=== PATIENT | male | born 1985 | race African-American/Black ===

== ENCOUNTER 2022-05-18 23:46 | Emergency (ER) | payer MEDICAID, OTHER ==
[~2022-05-18] VITALS: Ht 175.3 cm; Wt 75.0 kg
[2022-05-19] MEDS ORDERED: KETOROLAC 60MG/2ML VIAL IM STA (00:20)
[2022-05-19 01:51] VITALS: BP 128/88
[2022-05-19] MEDS ORDERED: NAPR-681 PO (04:02)
== END 2022-05-19 04:28 | disposition home or self-care (01) ==
LOC: ER 23:46
DX: M25.511 Pain in right shoulder (principal); F90.9 Attention-deficit hyperactivity disorder, unspecified type; Z88.1 Allergy status to other antibiotic agents
CPT/HCPCS: 73030; 96372; 99283; J1885; Z7610

== ENCOUNTER 2024-10-06 06:50 | Emergency (ER) | payer MEDICAID ==
[~2024-10-06] VITALS: Ht 175.3 cm; Wt 82.0 kg
[~2024-10-06 06:50] MED LIST: NAPR-681 PO
[2024-10-06 06:56] VITALS: O2SAT 98
[2024-10-06] MEDS: ACETAMINOPHEN 325MG TABLET PO ONE (07:30)
[2024-10-06] MEDS: FAMOTIDINE 20MG TABLET PO ONE (07:30)
[2024-10-06] MEDS: MAGNESIUM/ALUMINUM HYDROXIDE/SIMETHICONE 30ML UDC PO ONE (07:30)
[2024-10-06 07:42] LABS: CLARITY URINE CLEAR (CLEAR); COLOR URINE YELLOW (YELLOW); GLUCOSE URINE NEGATIVE (NEGATIVE); KETONES URINE NEGATIVE (NEGATIVE); LEUKOCYTE ESTERASE URINE NEGATIVE (NEGATIVE); NITRITE URINE NEGATIVE (NEGATIVE); OCCULT BLOOD URINE NEGATIVE (NEGATIVE); PH URINE 7.0 (4.5-8.0); PROTEIN URINE NEGATIVE (NEGATIVE); SPECIFIC GRAVITY URINE 1.005 (1.005-1.030); UROBILINOGEN URINE 0.2 E.U./dL (0.2-1.0)
[2024-10-06 07:46] LABS: BASOPHILS % 0.4 % (0.0-2.0); EOSINOPHILS % 0.9 % (0.0-5.0); HEMATOCRIT. 43.9 % (42.0-52.0); HEMOGLOBIN. 15.0 g/dL (14.0-18.0); LYMPHOCYTES % 31.8 % (20.0-50.0); MEAN PLATELET VOLUME 9.1 fl (7.4-10.4); MONOCYTES % 6.7 % (2.0-8.0); NEUTROPHILS % 60.2 % (40.0-76.0); PLATELET 224 x1000/uL (130-400); RED BLOOD CELL COUNT 4.88 mill/uL (4.7-6.1); RED CELL DISTRIBUTION WIDTH 14.5 % (11.6-14.6)
[2024-10-06 07:55] LABS: CREATININE 1.1 mg/dL (0.6-1.3)
[2024-10-06 07:56] LABS: UREA NITROGEN BLOOD 13 mg/dL (9-23)
[2024-10-06 07:57] LABS: TROPONIN I HIGH SENSITIVITY < 4 ng/L (3.0-53)
[2024-10-06] MEDS ORDERED: FAMO-135 MT (08:08)
[2024-10-06 08:20] VITALS: BP 130/88; PULSE 98; RESP 20; TEMP 36.8
== END 2024-10-06 08:21 | disposition home or self-care (01) ==
LOC: ER 06:50
DX: R10.12 Left upper quadrant pain (principal); Z88.0 Allergy status to penicillin; Z88.1 Allergy status to other antibiotic agents
CPT/HCPCS: 36415; 71045; 80048; 81003; 84484; 85025; 93005; 99285

== ENCOUNTER 2024-10-08 10:23 | Emergency (ER) | payer MEDICAID ==
[~2024-10-08] VITALS: Ht 175.3 cm; Wt 80.0 kg
[~2024-10-08 10:23] MED LIST changes: +FAMO-135 MT
[2024-10-08 10:25] VITALS: O2SAT 99
[2024-10-08 10:33] VITALS: BP 132/97; PULSE 85; RESP 16; TEMP 36.9; O2SAT 98
[2024-10-08 11:18] LABS: BASOPHILS % 0.3 % (0.0-2.0); EOSINOPHILS % 1.2 % (0.0-5.0); HEMATOCRIT. 45.4 % (42.0-52.0); HEMOGLOBIN. 15.3 g/dL (14.0-18.0); LYMPHOCYTES % 32.0 % (20.0-50.0); MEAN PLATELET VOLUME 9.4 fl (7.4-10.4); MONOCYTES % 7.5 % (2.0-8.0); NEUTROPHILS % 59.0 % (40.0-76.0); PLATELET 234 x1000/uL (130-400); RED BLOOD CELL COUNT 5.06 mill/uL (4.7-6.1); RED CELL DISTRIBUTION WIDTH 14.2 % (11.6-14.6)
[2024-10-08 11:21] LABS: CLARITY URINE CLEAR (CLEAR); COLOR URINE YELLOW (YELLOW); GLUCOSE URINE NEGATIVE (NEGATIVE); KETONES URINE NEGATIVE (NEGATIVE); LEUKOCYTE ESTERASE URINE NEGATIVE (NEGATIVE); NITRITE URINE NEGATIVE (NEGATIVE); OCCULT BLOOD URINE NEGATIVE (NEGATIVE); PH URINE 8.0 (4.5-8.0); PROTEIN URINE NEGATIVE (NEGATIVE); SPECIFIC GRAVITY URINE 1.002 (1.005-1.030); UROBILINOGEN URINE 0.2 E.U./dL (0.2-1.0)
[2024-10-08 11:27] LABS: INR 1.0
[2024-10-08 11:37] LABS: CREATININE 1.1 mg/dL (0.6-1.3); UREA NITROGEN BLOOD 9 mg/dL (9-23)
[2024-10-08 11:38] LABS: TROPONIN I HIGH SENSITIVITY < 4 ng/L (3.0-53)
== END 2024-10-08 13:09 | disposition home or self-care (01) ==
LOC: ER 10:23
DX: K92.1 Melena (principal); Z88.0 Allergy status to penicillin; Z79.899 Other long term (current) drug therapy
CPT/HCPCS: 36415; 80048; 81003; 84484; 85025; 86850; 86900; 99283